=== PATIENT | male | born 1995 | race African-American/Black ===

== ENCOUNTER 2018-07-07 09:01 | Emergency (ER) | payer MEDICAID, OTHER ==
[~2018-07-07] VITALS: Ht 167.6 cm; Wt 65.8 kg
[2018-07-07 10:47] VITALS: BP 116/68
== END 2018-07-07 10:36 | disposition home or self-care (01) ==
LOC: ER 09:01
DX: S90.02XA Contusion of left ankle, initial encounter (principal); W22.8XXA Striking against or struck by other objects, initial encounter; Y93.89 Activity, other specified; Y92.89 Other specified places as the place of occurrence of the external cause; Y99.8 Other external cause status
CPT/HCPCS: 29515; 73610; 73630